=== PATIENT | male | born 2005 | race Two or more races ===

== ENCOUNTER 2023-09-29 20:36 | Emergency (ER) | payer SELFPAY ==
[2023-09-29] MEDS: Lidocaine 1% 5 ML VIAL INJECT ONE (21:09)
[2023-09-29] MEDS: Bacitracin Oint 1 GM U/D Packet TOP ONE (21:10)
== END 2023-09-29 21:37 | disposition home or self-care (01) ==
LOC: JP.ED 20:36
DX: S01.312A Laceration without foreign body of left ear, initial encounter (principal); F17.210 Nicotine dependence, cigarettes, uncomplicated; W26.8XXA Contact with other sharp object(s), not elsewhere classified, initial encounter; Y93.02 Activity, running
CPT/HCPCS: 12011; 99282